=== PATIENT | female | born 1950 | race Caucasian/White ===

== ENCOUNTER 2023-12-04 16:30 | Emergency (ER) | payer MEDICARE, OTHER ==
[~2023-12-04] VITALS: Ht 175.3 cm; Wt 45.0 kg
[2023-12-04 16:53] VITALS: BP 172/98; PULSE 73; RESP 18; TEMP 97.8; O2SAT 100
[2023-12-04 17:21] LABS: BASOPHILS # (AUTO) 0.1 X10'3 (0-0.2); BASOPHILS % (AUTO) 0.9 % (0-1); EOSINOPHILS # (AUTO) 0.1 X10'3 (0-0.9); EOSINOPHILS % (AUTO) 0.9 % (0-6); HEMATOCRIT 37.6 % (35.0-45.0); HEMOGLOBIN 12.6 g/dl (12.0-16.0); LYMPHOCYTES # (AUTO) 1.2 X10'3 (1.1-4.8); LYMPHOCYTES % (AUTO) 19.5 % (21-51); MEAN CORPUSCULAR HEMOGLOBIN 29.1 PG (27.0-31.0); MEAN CORPUSCULAR HGB CONC 33.5 g/dL (33.0-36.5); MEAN PLATELET VOLUME 6.9 FL (7.4-10.4); MONOCYTES # (AUTO) 0.7 X10'3 (0-0.9); NEUTROPHILS # (AUTO) 4.1 X10'3 (1.8-7.7); NEUTROPHILS % (AUTO) 67.7 % (42-75); PLATELET COUNT 213 X10'3 (140-440); RED BLOOD COUNT 4.33 X10'6 (4.20-5.60); RED CELL DISTRIBUTION WIDTH 13.3 % (11.5-14.5)
[2023-12-04 17:43] LABS: ALBUMIN 4.1 G/DL (3.4-5.0); ANION GAP 7 (8-16); BLOOD UREA NITROGEN 7 MG/DL (7-18); BUN/CREATININE RATIO 10.6 (10.0-20.0); CALCIUM 9.4 MG/DL (8.5-10.1); CHLORIDE 95 MMOL/L (99-107); CREATININE 0.66 MG/DL (0.40-0.90); GLUCOSE 82 MG/DL (70-104); MAGNESIUM 2.1 MG/DL (1.5-2.4); POTASSIUM 3.5 MMOL/L (3.5-5.1); PRO BRAIN NATRIURETIC PEPTIDE 316 PG/ML (0-125); SODIUM 132 MMOL/L (135-145); TOTAL CARBON DIOXIDE 30.2 MMOL/L (24-32); eCRCL 56 ML/MIN; eGFR 88 ML/MIN
[2023-12-04] MEDS: aspirin 81mg tab.chew PO ONE (18:56)
== END 2023-12-04 20:25 | disposition home or self-care (01) ==
LOC: ER 16:31
DX: R07.9 Chest pain, unspecified (principal); I10 Essential (primary) hypertension; Z88.6 Allergy status to analgesic agent; Z88.2 Allergy status to sulfonamides; Z88.8 Allergy status to other drugs, medicaments and biological substances
CPT/HCPCS: 36415; 71045; 80048; 83735; 83880; 84484; 85025; 93005; 99285

== ENCOUNTER 2024-01-04 00:54 | Outpatient (CLI) | payer MEDICARE, OTHER ==
[2024-01-04] VITALS (21 sets, daily range): BP systolic 116–143; BP diastolic 74–100; PULSE 76–169
== END 2024-01-04 23:59 | disposition home or self-care (01) ==
LOC: CARD DIAG 00:54
PROVIDERS: ATTEND Internal Medicine Interventional Cardiology
DX: R55 Syncope and collapse (principal)
CPT/HCPCS: 93660

== ENCOUNTER 2025-01-28 07:42 | Day surgery (SDC) | payer MEDICARE, OTHER ==
[2025-01-28] VITALS (7 sets, daily range): BP systolic 113–137; BP diastolic 66–84; PULSE 62–100; RESP 14–18; O2SAT 92–100
[~2025-01-28] VITALS: Ht 172.7 cm; Wt 44.5 kg
[~2025-01-28 07:42] MED LIST: AMLO2.5T2 PO; CALC-787 PO; CYAN100087 PO; DOCU100C40 PO; ESTRADIOL 0.1 MG/GM; MAGN250T11 PO; SUCR1ORA15 PO; TRIM100T PO; URIN1STR
[2025-01-28] MEDS ORDERED: propofol inj 20 ML IV ONE (09:46)
--- NOTE | 2025-01-30 12:40 | PATHOLOGY REPORT ---
[facility] [address] [place] [address] SURGICAL PATHOLOGY REPORT CaseNumber: [id number] Surgeon:Ish Hurley M.D. CLINICAL INFORMATION CLINICAL INFORMATION: Weight loss, failure to thrive. R/O H. pylori. DIAGNOSIS DIAGNOSIS: STOMACH, ANTRUM; BIOPSY - REACTIVE GASTROPATHY. - NEGATIVE FOR INTESTINAL METAPLASIA - NEGATIVE FOR H. PYLORI (CONFIRMED BY IMMUNOSTAIN). MICROSCOPIC DESCRIPTION MICROSCOPIC DESCRIPTION: 1 H&E slide is reviewed. It shows a fragment of gastric mucosa with reactive epithelial changes including foveolar cells with enlarged nuclei and reduced apical mucin. I do not see any intraepithelial neutrophilic inflammation. There is no intestinal metaplasia or evidence of d ysplasia. H. pylori immunostain is performed and is negative for organisms. These histologic findings are most consistent with reactive gastropathy. GROSS DESCRIPTION GROSS DESCRIPTION: Received in a container of formalin labeled with the patient's name, number, and " antrum BX" is a 0.2 cm piece of ching tissue. The specimen is entirely submitted as A1. The time at [facility] the specimen was removed was 943. The time at which the specimen was placed in formalin was 943. Electronically signed by: Kenneth [place], 01/30/2025 12:05:00 PM
== END 2025-01-28 11:35 | disposition home or self-care (01) ==
LOC: GI LAB 07:42
PROVIDERS: ATTEND Internal Medicine Gastroenterology
DX: R63.4 Abnormal weight loss (principal); K31.89 Other diseases of stomach and duodenum; R62.7 Adult failure to thrive; K22.89 Other specified disease of esophagus; I10 Essential (primary) hypertension; Z79.899 Other long term (current) drug therapy
CPT/HCPCS: 43239; A4620; J2704; J7030; Z7512